=== PATIENT | male | born 1935 | race Caucasian/White ===

== ENCOUNTER 2019-10-01 11:12 | Outpatient (CLI) | payer MEDICARE, OTHER, SELFPAY ==
[2019-10-01 11:47] LABS: Basophils Percent Auto 0.5 % (0.2-1.2); Eosinophils Absolute Auto 0.1 K/mm3 (0-0.3); Eosinophils Percent Auto 2.7 % (0-4.4); Hematocrit 36.3 % (42.0-52.0); Hemoglobin 11.8 g/dL (14.0-18.0); Immature Granulocyte Absolute 0.01 K/mm3 (0.00-0.031); Immature Granulocyte Percent A 0.2 % (0-0.5); Lymphocytes Absolute Auto 0.76 K/mm3 (0.9-3.2); Lymphocytes Percent Auto 18.7 % (18.3-44.2); Mean Corpuscular HGB Conc 32.5 g/dl (32-36); Mean Corpuscular Hemoglobin 30.8 pg (26-34); Mean Corpuscular Volume 94.8 fl (80-100); Mean Platelet Volume 10.2 fl (7.4-10.4); Monocytes Absolute Auto 0.4 K/mm3 (0.1-0.6); Monocytes Percent Auto 8.6 % (2.6-8.5); Neutrophils Absolute Auto 2.8 K/mm3 (1.3-6.7); Neutrophils Percent Auto 69.3 % (45.5-73.1); Platelet Count Result 168 k/mm3 (150-375); Red Blood Count 3.83 M/mm3 (4.6-6.20); Red Cell Distribution Width 14.6 % (11.5-14.5); White Blood Count 4.1 K/mm3 (4.5-10.0)
[2019-10-01 11:59] LABS: Alanine Aminotransferase 14 U/L (4-50); Albumin Level 4.3 g/dL (3.5-5.1); Alkaline Phosphatase 42 U/L (38-126); Aspartate Amino Transferase 32 U/L (17-59); Bilirubin,Total 0.8 mg/dL (0.2-1.3); Blood Urea Nitrogen 28 mg/dL (9-20); Calcium 9.4 mg/dL (8.4-10.2); Carbon Dioxide 28 mmol/L (22-30); Chloride 108 mmol/L (98-107); Cholesterol 154 mg/dL (0-200); Estimated Glomerular Filt Rate 53; Glucose 111 mg/dL (75-110); HDL Direct 63 mg/dL; Potassium 4.3 mmol/L (3.4-5.0); Sodium 142 mmol/L (137-145); Triglycerides 84 mg/dL (<150)
[2019-10-01 12:06] LABS: Hemoglobin A1C 5.6 % (<5.7)
[2019-10-01 12:10] LABS: LDL Cholesterol Direct 68 mg/dL
[2019-10-01 12:27] LABS: Prostate Specific Antigen 4.7 ng/mL (< OR = 4.0)
[2019-10-01 12:38] LABS: Add Urine Microscopic? YES; Appearance Urine Clear (Clear); Bilirubin Urine Negative (Negative); Blood Urine 2+ (Negative); Color Urine Yellow (Yellow); Glucose Urine UA Negative (Negative); Iron 74 ug/dL (49-181); Ketones Urine Negative (Negative); Leukocyte Esterase Ur Trace LEU/UL (NEGATIVE); Mucus Urine Rare /lpf; Nitrate Urine Negative (Negative); Protein Urine Negative (Negative); RBC Urine 0-2 /hpf (0-2); Specific Grav Ur 1.024 (1.001-1.035); Squamous Epithelial Cell Urine Rare /hpf (Few); Urobilinogen Urine Negative mg/dL (<2.0)
[2019-10-01 12:47] LABS: Percent Iron Saturation 27 % (20-50)
== END 2019-10-01 11:13 | disposition home or self-care (01) ==
PROVIDERS: PCP Internal Medicine; Visit Provider Internal Medicine
DX: Z79.899 Other long term (current) drug therapy (principal); I10 Essential (primary) hypertension; C61 Malignant neoplasm of prostate; D50.9 Iron deficiency anemia, unspecified; E78.2 Mixed hyperlipidemia
CPT/HCPCS: 36415; 80053; 80061; 81001; 82728; 83036; 83540; 83550; 84153; 84439; 84443; 85025

== ENCOUNTER 2019-11-17 08:23 | Outpatient (CLI) | payer MEDICARE, OTHER, SELFPAY ==
--- NOTE | ~2019-11-17 | US_ITS ---
EXAMINATION: US art doppler w press PRINCESS BI DATE: 11/17/2019 09:25 INDICATION: Symptoms and signs involving circulatory system TECHNIQUE: Segmental pressures and plethysmographic and Doppler waveforms of the brachial and lower e xtremity arteries were obtained. COMPARISON: None. FINDINGS: Right and left brachial artery pressures of 130 mm Hg and 141 mm Hg, respectively, are concordant (no rmal difference <= 30 mmHg). The left high-thigh pressure index was 1.16 (normal > 1.2). The right hi gh thigh pressure index was unable to be occluded due to inability to occlude the vessel. Also unable to be occluded where the left flpxm-ybz-xdfl popliteal artery, the bilateral odjxd-yvz-avzn poplitea l arteries and bilateral dorsalis pedis arteries. This precludes assessment for segmental pressure gr adients. The right ankle-brachial index (WALLACE) is at least 0.91 based only upon the pressure at the right poste rior tibial artery (normal >= 0.9-1). The right great toe-brachial index (TBI) is 0.77 (normal >= 0.6 -0.8). Arterial waveforms are triphasic at the right common femoral and superficial femoral arteries and biphasic more distally with brisk systolic upstrokes throughout. The left WALLACE is 1.33. The left TBI is 0.50. Arterial waveforms are biphasic with brisk systolic upstr okes throughout. IMPRESSION: 1. 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 2. No significant arterial occlusive disease to the right lower limb with normal right WALLACE and TBI. Reviewed, dictated and finalized at location A. IMPRESSION: 1. 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 2. No significant arterial occlusive disease to the right lower limb with caty l right WALLACE and TBI.
== END 2019-11-17 08:24 | disposition home or self-care (01) ==
PROVIDERS: PCP Internal Medicine; Visit Provider Internal Medicine
DX: R09.89 Other specified symptoms and signs involving the circulatory and respiratory systems (principal)
CPT/HCPCS: 93923

== ENCOUNTER 2020-01-07 15:34 | Observation (INO) | payer MEDICARE, OTHER, SELFPAY ==
[2020-01-07] VITALS (10 sets, daily range): BP systolic 117–168; BP diastolic 65–79; PULSE 71–113; RESP 18–24; TEMP 36.1–36.6; O2SAT 22–99; BMI 26.2
--- NOTE | ~2020-01-07 | XR_ITS ---
EXAMINATION: XR chest 2V DATE: 01/07/2020 16:08 INDICATION: Worsening shortness of breath TECHNIQUE: PA and lateral views of the chest were obtained. COMPARISON: Chest radiograph dated 05/05/2006 FINDINGS: Hyperexpansion of lungs with flattening of the diaphragm and increased lucency in the upper lung zone s suggestive but not diagnostic of COPD. Blunting at the costophrenic angles and posterior sulci whic h could represent tiny pleural effusions or pleural parenchymal scarring. Suggestion of mild bronchie ctatic change at the left lower lung zone. No pulmonary edema or pneumothorax. Cardiomediastinal silh ouette is normal. Median sternotomy wires and mediastinal surgical clips are seen, likely from prior coronary artery bypass grafting. . There has also been prior coronary artery stenting. Tortuous and a therosclerotic thoracic aorta. Cholecystectomy clips in the right upper quadrant. Mild thoracic spond ylosis with minimal to mild anterior wedging of a few mid to lower thoracic vertebral bodies. IMPRESSION: 1. Hyperexpanded lungs suggestive but not diagnostic of COPD. 2. Tiny bilateral pleural effusions versus pleural parenchymal scarring at the margins of the lung ba ses. Reviewed, dictated and finalized at location B. IMPRESSION: 1. Hyperexpanded lungs suggestive but not diagnostic of COPD. 2. Tiny bilateral pleural effusions versus pleural parenchymal scarring at the margins of the lung bases.
--- NOTE | 2020-01-07 15:43 | ECG_ITS ---
Measurements Intervals [place] Rate: 68 P: MD: 0 QRS: 30 QRSD: 153 T: 19 QT: 456 QTc: 488 Interpretive Statements ATRIAL FIBRILLATION RIGHT BUNDLE BRANCH BLOCK ABNORMAL ECG Electronically Signed On 01-07-2020 16:39:00 CDT by Josh Batista D.O.
--- NOTE | 2020-01-07 15:45 | ED.SOB ---
HPI - SOB/Dyspnea General Chief Complaint: Recheck/Abnormal Lab/Rx Stated Complaint: abnormal ekg Time Seen by Provider: 01/07/20 15:43 History of Present Illness HPI Narrative: Sent in from PCP office for SOB. He reports that he has been more short of breath for the past few days and today just walking in from the car he becmae quite winded. He also reports early fatigue. He has known cardiomyopathy, but says that at baseline he is very active and does not get SOB. He has some ankle swelling, but no more than usual. No CP, cough, congestion, fever. Related Data Home Medications Medication Instructions Recorded Confirmed aspirin 81 mg tablet,delayed 81 mg PO DAILY 10/01/19 01/07/20 release furosemide 20 mg tablet 20 mg PO QAM 10/01/19 01/07/20 isosorbide mononitrate 60 mg 60 mg PO DAILY 10/01/19 01/07/20 tablet,extended release 24 hr multivitamin 1 tablet PO HS 10/01/19 01/07/20 pantoprazole 40 mg tablet,delayed 40 mg PO QAM 10/01/19 01/07/20 release warfarin 2 mg tablet 2 mg PO HS 10/01/19 01/07/20 oxybutynin chloride 5 mg PO HS 01/07/20 01/07/20 rosuvastatin 40 mg PO HS 01/07/20 01/07/20 Allergies Allergy/AdvReac Type Severity Reaction Status Date / Time No Known Allergies Allergy Verified 01/07/20 15:53 Review of Systems Review of Systems: All systems reviewed & are unremarkable except as noted in HPI and below Constitutional: Constitutional: Reports fatigue and Denies fever(s) ENT: Denies nasal congestion Cardiovascular: Cardiovascular: Denies chest pain Respiratory: Respiratory: Denies cough and Reports dyspnea [facility] Past Medical History Medical History Atrial fibrillation Benign essential hypertension Chronic anemia Chronic kidney disease Coronary artery disease Status post bypass in March 1992 and stent x2 in 2017. Current use of mcc anticoagulation On warfarin status post mechanical aortic valve replacement. Degenerative joint disease Essential hypertension Gastroesophageal reflux disease Hearing loss Hyperlipidemia Iron deficiency anemia Prostate cancer Valvular heart disease Status post mechanical aortic valve replacement. Surgical History Surgical History History of cholecystectomy (~1992) History of coronary artery bypass graft (~03/07/92) History of coronary artery stent placement (~2017) History of inguinal hernia repair (~1992) History of mechanical aortic valve replacement (~03/07/92) History of repair of left rotator cuff (~1997) History of tonsillectomy and adenoidectomy Family History Family History Mother ASHD (arteriosclerotic heart disease) Alzheimers disease Hypertension Father Bladder cancer Emphysema, unspecified Sibling Hypertension Social History Social History Social History: Surrogate decision maker: Maria Elena Tsai, spouse. Code status: Do not resuscitate. Smoking status: Former smoker Tobacco type: cigarettes Second hand tobacco smoke exposure: No Smoking end date: 05/06/90 Alcohol intake: current Alcohol use details: Social alcohol use, in moderation. Substance use: never Additional living arrangements comments: Lives with spouse in [place]. 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 Gender identity (if verbalized by the patient): Male Sexual Orientation (if Verbalized by the Patient): Straight or Heterosexual Spiritual care concerns: No Exam Const: General: no acute distress and alert Orientation/consciousness: patient oriented x3 HENMT: Head: normal to inspection Resp: Effort & Inspection: normal respiratory effort Auscultation: no rales, no rhonchi and wheezes Cardio: Jugular venous distension: no JVD Rhythm
[2020-01-07 16:04] LABS: Hematocrit 31.6 % (42.0-52.0); Hemoglobin 10.4 g/dL (14.0-18.0); Immature Granulocyte Absolute 0.03 K/mm3 (0.00-0.031); Immature Granulocyte Percent A 0.4 % (0-0.5); Lymphocytes Absolute Auto 0.28 K/mm3 (0.9-3.2); Lymphocytes Percent Auto 3.6 % (18.3-44.2); Mean Corpuscular HGB Conc 32.9 g/dl (32-36); Mean Corpuscular Hemoglobin 29.9 pg (26-34); Mean Corpuscular Volume 90.8 fl (80-100); Mean Platelet Volume 10.1 fl (7.4-10.4); Monocytes Absolute Auto 0.4 K/mm3 (0.1-0.6); Monocytes Percent Auto 4.5 % (2.6-8.5); Neutrophils Absolute Auto 7.2 K/mm3 (1.3-6.7); Neutrophils Percent Auto 91.5 % (45.5-73.1); Platelet Count Result 214 k/mm3 (150-375); Red Blood Count 3.48 M/mm3 (4.6-6.20); Red Cell Distribution Width 14.7 % (11.5-14.5); White Blood Count 7.8 K/mm3 (4.5-10.0)
[2020-01-07 16:16] LABS: Anion Gap 7 mmol/L (8-16); Blood Urea Nitrogen 30 mg/dL (9-20); Calcium 9.1 mg/dL (8.4-10.2); Carbon Dioxide 23 mmol/L (22-30); Chloride 111 mmol/L (98-107); Estimated CRCL calculation 36 ml/min; Estimated Glomerular Filt Rate > 60; Glucose 173 mg/dL (75-110); Potassium 3.9 mmol/L (3.4-5.0); Sodium 141 mmol/L (137-145)
[2020-01-07 16:18] LABS: INR 4.1; Prothrombin Time 39.4 Seconds (11.1-14.7)
[2020-01-07 16:19] LABS: Partial Thromboplastin Time 60.1 SECONDS (22.3-36.8)
--- NOTE | 2020-01-07 16:20 | PC.NURSE ---
This RN placed patient back on monitor after arriving back to ER room from X-ray. Patient stating pulse ox and blood pressure cuff cause him anxiety and asking this RN to remove. Need for monitoring oxygen saturation and blood pressure explained to patient. Patient refusing but will allow intermittent vital signs checks.
[2020-01-07] MEDS: IPRATROPIUM BR 0.02% INH SOLN 0.5 MG/2.5 ML VIAL INHALATION (16:26)
[2020-01-07] MEDS: ALBUTEROL SULFATE NEB 2.5 MG/0.5 ML INH 5 MG INHALATION (16:26)
[2020-01-07 16:35] LABS: NT Pro B Type Natriuretic Pept 9390 PG/ML (5-100); Troponin I 0.679 ng/mL (0.000-0.034)
--- NOTE | 2020-01-07 17:20 | PC.NURSE ---
Dinner tray ordered for pt at this time
--- NOTE | 2020-01-07 17:43 | PC.NURSE ---
Pt calling out, RN to room. Pt states 1st of all where is my food, 2nd of all where am i even suppose to sat the tray when i get it in this room, what is taking so long I stated that I ordered his tray and it will be here soon and showed him the side tray. Pt states where is the doctor, i asked a question 20 minutes ago and he isn't in here I state that the Dr has other patients that he is with and will be in with him when he gets a chance. Pt states well im the most important so he needs to get in here
[2020-01-07 19:35] LABS: Troponin I 0.599 ng/mL (0.000-0.034)
--- NOTE | 2020-01-07 20:42 | ADMGEN ---
This patient, Akira Samson, was admitted to IMU Room 213-01 from ER at 19:05 on 01/07/20. Patient/family oriented to hospital policies and general routines including ID bracelet, bed and alarms, visiting hours, pain management, procedures, bathroom and other care routines, personal items, smoking policy, room service/diet, and visiting hours. Valuables list has been completed. Information on how to activate the Rapid Response Team has been discussed. Patient/Family are encouraged to report perceived risks to care and to ask questions if they do not understand what they are told or what they should do.
--- NOTE | 2020-01-07 20:45 | PM.IMHP ---
H&P: HPI History of Present Illness Date/Time: 01/07/20 20:45 Chief complaint: Shortness of breath. Narrative: Akira Samson is an 84-year-old male with coronary artery disease status post stent, valvular heart disease status post mechanical aortic valve replacement in 1991, hypertension, hyperlipidemia, to the emergency department earlier today from Dr. Cisneros office for evaluation of shortness of breath. He is not too keen on being hospitalized, and tells me that he is currently feeling in his usual state of health and is not certain why he is even in the hospital. He is a bit irritable at the time my evaluation, and is difficult to get a full history from him ?as I am sick of answering the same questions.? From what I can gather, this morning he was doing some projects about the house (he and his have been remodeling their home and preparations for selling it) and he seemed to be more short of breath to his who encouraged him to make an appoint with Dr. Cisneros today. An EKG done at his office was apparently abnormal, prompting him to send the patient to the emergency department. With further questioning, the patient is adamant that he has never had any chest pain but that he has been getting short of breath even when walking and doing daily activities about the home. However ?I am like the energizeer nat and it sounds like he is very active, as he is responsible for cooking and cleaning the home, and again he is actively remodeling his own home. ?I have no problems with shortness of breath when lifting, it is only when up walking. He cannot give me a time frame as to whether not that has been ongoing or if this is a new finding. Again, at the time my evaluation he has no complaints. He specifically denies chest pain, pleuritic pain, palpitations, orthopnea, PND, cough, wheezing, pleuritic pain, edema, nausea, vomiting, and sweats. Review of Systems Review of Systems: Narrative: A review of systems was attempted but is limited as the patient is not answering all of my questions as he has been asked multiple questions since coming to the hospital and he seems a bit perturbed by having to answer more. Positives and negatives are documented as per HPI. [facility] Past Medical History Medical History (Updated 01/07/20 @ 23:22 by Shelby Wilson PA-C) Atrial fibrillation Benign essential hypertension Chronic anemia Chronic kidney disease Coronary artery disease Status post bypass in March 1992 and stent x2 in 2017. Current use of chcf anticoagulation On warfarin status post mechanical aortic valve replacement. Degenerative joint disease Essential hypertension Gastroesophageal reflux disease Hearing loss Hyperlipidemia Iron deficiency anemia Prostate cancer Valvular heart disease Status post mechanical aortic valve replacement. Surgical History Surgical History (Updated 01/07/20 @ 23:18 by Shelby Wilson PA-C) History of cholecystectomy (~1992) History of coronary artery bypass graft (~03/07/92) History of coronary artery stent placement (~2017) History of inguinal hernia repair (~1992) History of mechanical aortic valve replacement (~03/07/92) History of repair of left rotator cuff (~1997) History of tonsillectomy and adenoidectomy Family History Family History Mother ASHD (arteriosclerotic heart disease) Alzheimers disease Hypertension Father Bladder cancer Emphysema, unspecified Sibling Hypertension Social History Social History (Updated 01/07/20 @ 23:19 by Shelby Wilson PA-C) Social History: Surrogate decision maker: Maria Elena Tsai, spouse. Code status: Do not resuscitate. Smoking status: Former smoker Tobacco type: cigarettes Second hand tobacco smoke exposure: No Smoking end date: 05/06/90 Alcohol intake: current Alcohol use details: Social alcohol use, in moderation. Substance use: never Ad
[2020-01-07 22:31] LABS: Troponin I 0.663 ng/mL (0.000-0.034)
[2020-01-08] VITALS: PULSE 74
[2020-01-08] MEDS: OXYBUTYNIN CHLORIDE 5 MG TABLET PO (00:29)
[2020-01-08] MEDS: ROSUVASTATIN 10 MG TABLET 40 MG PO (00:30)
[2020-01-08] MEDS: MULTIVITAMINS THERAPEUTIC TAB (*BKC) 1 TABLET PO (00:30)
--- NOTE | 2020-01-08 01:13 | PC.NURSE ---
0100 pt agitated and verbally aggressive towards nursing staff. Pt demanded Coumadin, which was held per H. RAFA Wilson d/t pt's INR 4.1 Pt extremely upset stating he will shahid the hospital if he doesn't get his medication. Nursing staff attempted to education pt as to why the order to hold the Coumadin was implemented, but pt continued to yell in an agitated state. Nursing staff informed pt that he would not be receiving the Coumadin this evening and the physicians would be rounding in a few hours and he could discuss the issue with them personally. Pt left with call light in hand, and nursing staff will cont to monitor and assess.
[2020-01-08 02:00] VITALS: PULSE 61
[2020-01-08 03:39] VITALS: BP 153/65; PULSE 84; RESP 22; TEMP 36.5; O2SAT 99
[2020-01-08 04:00] VITALS: PULSE 71
[2020-01-08 05:04] LABS: Hematocrit 30.8 % (42.0-52.0); Hemoglobin 10.2 g/dL (14.0-18.0); Immature Granulocyte Absolute 0.04 K/mm3 (0.00-0.031); Immature Granulocyte Percent A 0.6 % (0-0.5); Lymphocytes Absolute Auto 0.19 K/mm3 (0.9-3.2); Lymphocytes Percent Auto 3.1 % (18.3-44.2); Mean Corpuscular HGB Conc 33.1 g/dl (32-36); Mean Corpuscular Hemoglobin 30.4 pg (26-34); Mean Corpuscular Volume 91.7 fl (80-100); Mean Platelet Volume 10.5 fl (7.4-10.4); Monocytes Absolute Auto 0.3 K/mm3 (0.1-0.6); Monocytes Percent Auto 4.2 % (2.6-8.5); Neutrophils Absolute Auto 5.7 K/mm3 (1.3-6.7); Neutrophils Percent Auto 92.1 % (45.5-73.1); Platelet Count Result 197 k/mm3 (150-375); Red Blood Count 3.36 M/mm3 (4.6-6.20); Red Cell Distribution Width 14.7 % (11.5-14.5); White Blood Count 6.2 K/mm3 (4.5-10.0)
[2020-01-08 05:15] LABS: INR 4.4; Prothrombin Time 41.6 Seconds (11.1-14.7)
[2020-01-08 05:16] LABS: Alanine Aminotransferase 20 U/L (4-50); Albumin Level 4.1 g/dL (3.5-5.1); Alkaline Phosphatase 52 U/L (38-126); Anion Gap 6 mmol/L (8-16); Aspartate Amino Transferase 39 U/L (17-59); Bilirubin,Total 0.4 mg/dL (0.2-1.3); Blood Urea Nitrogen 29 mg/dL (9-20); Carbon Dioxide 24 mmol/L (22-30); Chloride 109 mmol/L (98-107); Estimated CRCL calculation 34 ml/min; Estimated Glomerular Filt Rate 58; Glucose 138 mg/dL (75-110); Magnesium 2.3 mg/dL (1.6-2.3); Potassium 4.3 mmol/L (3.4-5.0); Sodium 139 mmol/L (137-145)
[2020-01-08 05:48] VITALS: PULSE 77
--- NOTE | 2020-01-08 07:18 | PC.NURSE ---
This morning, pt's physician Dr. Cisneros, came to the bedside to speak to pt regarding his admission and the importance of why he is at the hospital. Blayne discussed the pt's elevated troponin levels and why it is crucial to be seen by cardiology d/t his extensive cardiac history. Pt also brought up INR level and how angry he was that RN held his coumadin d/t verbal order from PA. Dr. Cisneros explained the reasoning behind holding the coumadin, pt still did not agree with logic. Pt was agitated and did not want to stay at [facility], stating he hates this hospital . Dr. Cisneros told the patient that if he doesn't stay at [facility] to be seen by the printing plate clerk, then he needs to go home and sit on his bottom, no activity because he is at risk of a cardiac event. He told the pt he should not travel (I assume based on conversation the pt and had plans to travel in the next few days). Dr. Cisneros asked the pt if he would at least stay and be seen/discharged by the hospitalist. Pt agreed to stay and be seen by hospitalist this morning. Oncoming RN, Jacqui, called combat information center officer hospitalist Dr. Fields to discuss situation and inform him of pt wanting to leave. RAFA Odell (Dr. Mejia), came to bedside to discuss situation with patient.
--- NOTE | 2020-01-08 07:56 | PC.NURSE ---
RAFA Smith went into the patient's room to speak with him regarding his need to stay at the hospital for his medical issues for which he was admitted. When Mariangel left the room she informed me that the patient still wishes to sign out AMA. I went into the patient's room and spoke with him one more time about staying to which he responded I have been through this song and dance for an hour. I want to leave. I had the patient sign the AMA form and removed his health physics technician and IV. Patient called his ride and was getting dressed when I stepped out of the room. Patient left the floor at 07:42.
--- NOTE | 2020-01-08 07:58 | PM.DS ---
DS: Admitting Diagnosis Admitting Diagnosis Admitting Diagnosis: Shortness of breath. DS: Discharge Diagnosis Discharge Diagnosis (1) Shortness of breath: Code(s): R06.02 - Shortness of breath Status: Acute Assessment and Plan: (2) Elevated troponin: Code(s): R79.89 - Other specified abnormal findings of blood chemistry Status: Acute Assessment and Plan: (3) Atrial fibrillation: Code(s): I48.91 - Unspecified atrial fibrillation Status: Acute Assessment and Plan: (4) Current use of terminologist anticoagulation: Code(s): Z79.01 - extermination inspector (current) use of anticoagulants Status: Acute Assessment and Plan: (5) Coronary artery disease: Code(s): I25.10 - Atherosclerotic heart disease of [place] coronary artery without angina pectoris Status: Acute Assessment and Plan: (6) Chronic anemia: Code(s): D64.9 - Anemia, unspecified Status: Acute Assessment and Plan: (7) Essential hypertension: Code(s): I10 - Essential (primary) hypertension Status: Acute Assessment and Plan: DS: Summary Hospital Course Reason for hospitalization: Patient is an 84-year-old man with coronary artery disease status post stent, valvular heart disease status post mechanical aortic valve replacement in 1991, hypertension, hyperlipidemia, who was sent into the emergency room for further evaluation by his primary care doctor Dr. Cisneros after your reported increased dyspnea on exertion for the last few weeks. There was an EKG completed his primary care's office which was apparently abnormal and prompted him to be sent to the ER for further evaluation workup. Initial vitals showed Temperature of 98.9?, blood pressure 124/66, heart rate 73, respiratory rate 16, oxygen saturation 96% on room air. Initial labs showed normocytic anemia with a hemoglobin of 10.4, hematocrit 31.6, elevated neutrophil count at 91%, abnormal coag panel with an INR 4.1 which is increased since he is on Coumadin, BMP appears to be stable with a creatinine 1.1, BUN 30. Troponin was elevated at 0.679 on arrival. BMP was 9390. CXR showed Hyperexpanded lungs suggestive but not diagnostic of COPD. Tiny bilateral pleural effusions versus pleural parenchymal scarring at the margins of the lung bases. EKG showed atrial fibrillation With a heart rate of 68 beats per minute, right bundle branch block. Patient was admitted into the hospital for further workup and evaluation with a cardiology consult. He was admitted by Shelby Wilson and her note stated that the patient did not want to be admitted in the 1st place in that he was going to be leaving promptly at 7:00 a.m.. I received a call at 7:05 a.m. stating that the patient wanted to leave. His primary care doctor had been in to evaluate him and tried to convince him of staying for evaluation by the hospitalists and Cardiology. I went to evaluate the patient and informed him of the risks of leaving which could include if we cannot rule out him having a heart attack causing his elevated troponins and dyspnea on exertion given his history of coronary artery disease. The patient states he does not care and that he would like to leave right now. He states ?God will take care of him?. The patient is alert and oriented and able to make his own sound decisions at this point in time. He understands the risks of leaving the hospital against medical advise and has been informed that he should stay for further workup and evaluation by Cardiology given his cardiac history. He
== END 2020-01-08 07:42 | disposition left against medical advice (07) ==
LOC: ANHED 17:44 → ANHIMU 18:21
PROVIDERS: Physician Assistant; Admitting Provider Internal Medicine; Emergency Provider Emergency Medicine; PCP Internal Medicine; Visit Provider Physician Assistant
DX: R06.02 Shortness of breath (principal); R79.89 Other specified abnormal findings of blood chemistry; I48.91 Unspecified atrial fibrillation; I42.9 Cardiomyopathy, unspecified; I25.10 Atherosclerotic heart disease of native coronary artery without angina pectoris; I10 Essential (primary) hypertension; K21.9 Gastro-esophageal reflux disease without esophagitis; E78.5 Hyperlipidemia, unspecified; D64.9 Anemia, unspecified; Z85.46 Personal history of malignant neoplasm of prostate; Z95.2 Presence of prosthetic heart valve; Z79.01 Long term (current) use of anticoagulants; Z79.84 Long term (current) use of oral hypoglycemic drugs; Z95.1 Presence of aortocoronary bypass graft; Z95.5 Presence of coronary angioplasty implant and graft; Z87.891 Personal history of nicotine dependence
CPT/HCPCS: 36415; 71046; 80048; 80053; 83735; 83880; 84484; 85025; 85610; 85730; 93005; 94640; 99285; A9270; G0378

== ENCOUNTER 2020-02-02 14:53 | Outpatient (CLI) | payer MEDICARE, OTHER, SELFPAY ==
[2020-02-02 15:21] LABS: Basophils Percent Auto 0.3 % (0.2-1.2); Eosinophils Absolute Auto 0.1 K/mm3 (0-0.3); Eosinophils Percent Auto 1.8 % (0-4.4); Hematocrit 31.7 % (42.0-52.0); Hemoglobin 10.3 g/dL (14.0-18.0); Immature Granulocyte Absolute 0.01 K/mm3 (0.00-0.031); Immature Granulocyte Percent A 0.3 % (0-0.5); Lymphocytes Absolute Auto 0.78 K/mm3 (0.9-3.2); Lymphocytes Percent Auto 23.8 % (18.3-44.2); Mean Corpuscular HGB Conc 32.5 g/dl (32-36); Mean Corpuscular Hemoglobin 30.3 pg (26-34); Mean Corpuscular Volume 93.2 fl (80-100); Mean Platelet Volume 9.6 fl (7.4-10.4); Monocytes Absolute Auto 0.3 K/mm3 (0.1-0.6); Monocytes Percent Auto 7.9 % (2.6-8.5); Neutrophils Absolute Auto 2.2 K/mm3 (1.3-6.7); Neutrophils Percent Auto 65.9 % (45.5-73.1); Platelet Count Result 233 k/mm3 (150-375); Red Cell Distribution Width 15.7 % (11.5-14.5); White Blood Count 3.3 K/mm3 (4.5-10.0)
[2020-02-02 15:33] LABS: Anion Gap 9 mmol/L (8-16); Blood Urea Nitrogen 20 mg/dL (9-20); Calcium 9.2 mg/dL (8.4-10.2); Carbon Dioxide 25 mmol/L (22-30); Chloride 106 mmol/L (98-107); Cholesterol 150 mg/dL (0-200); Estimated Glomerular Filt Rate > 60; Glucose 99 mg/dL (75-110); HDL Direct 60 mg/dL; Potassium 4.4 mmol/L (3.4-5.0); Sodium 140 mmol/L (137-145); Triglycerides 87 mg/dL (<150)
[2020-02-02 15:44] LABS: LDL Cholesterol Direct 67 mg/dL
== END 2020-02-02 14:54 | disposition home or self-care (01) ==
PROVIDERS: PCP Internal Medicine; Visit Provider Internal Medicine
DX: E78.2 Mixed hyperlipidemia (principal); I10 Essential (primary) hypertension
CPT/HCPCS: 36415; 80048; 80061; 82542; 85025

== ENCOUNTER 2020-09-01 07:03 | Outpatient (CLI) | payer MEDICARE, SELFPAY ==
[2020-09-01 07:23] LABS: Basophils Percent Auto 0.8 % (0.2-1.2); Eosinophils Absolute Auto 0.1 K/mm3 (0-0.3); Eosinophils Percent Auto 3.8 % (0-4.4); Hematocrit 34.2 % (42.0-52.0); Hemoglobin 10.9 g/dL (14.0-18.0); Immature Granulocyte Absolute 0.01 K/mm3 (0.00-0.031); Immature Granulocyte Percent A 0.4 % (0-0.5); Lymphocytes Absolute Auto 0.69 K/mm3 (0.9-3.2); Lymphocytes Percent Auto 28.9 % (18.3-44.2); Mean Corpuscular HGB Conc 31.9 g/dl (32-36); Mean Corpuscular Hemoglobin 29.5 pg (26-34); Mean Corpuscular Volume 92.7 fl (80-100); Monocytes Absolute Auto 0.2 K/mm3 (0.1-0.6); Monocytes Percent Auto 9.6 % (2.6-8.5); Neutrophils Absolute Auto 1.4 K/mm3 (1.3-6.7); Neutrophils Percent Auto 56.5 % (45.5-73.1); Platelet Count Result 136 k/mm3 (150-375); Red Blood Count 3.69 M/mm3 (4.6-6.20); White Blood Count 2.4 K/mm3 (4.5-10.0)
[2020-09-01 08:04] LABS: Alanine Aminotransferase 20 U/L (4-50); Albumin Level 3.9 g/dL (3.5-5.1); Alkaline Phosphatase 53 U/L (38-126); Anion Gap 4 mmol/L (8-16); Aspartate Amino Transferase 41 U/L (17-59); Bilirubin,Total 0.6 mg/dL (0.2-1.3); Blood Urea Nitrogen 22 mg/dL (9-20); Calcium 8.8 mg/dL (8.4-10.2); Carbon Dioxide 29 mmol/L (22-30); Chloride 110 mmol/L (98-107); Cholesterol 136 mg/dL (0-200); Estimated Glomerular Filt Rate > 60; Glucose 106 mg/dL (75-110); HDL Direct 61 mg/dL; LDL Cholesterol Direct 57 mg/dL; Sodium 143 mmol/L (137-145); Triglycerides 65 mg/dL (<150)
[2020-09-01 08:25] LABS: Iron 36 ug/dL (49-181)
[2020-09-01 08:30] LABS: Potassium 4.5 mmol/L (3.4-5.0)
[2020-09-01 08:36] LABS: Percent Iron Saturation 13 % (20-50)
[2020-09-01 08:40] LABS: Hemoglobin A1C 5.4 % (<5.7)
[2020-09-01 08:43] LABS: Free T4 Free Thyroxine 1.15 ng/mL (0.78-2.19)
[2020-09-04 20:09] LABS: Homocysteine 10.6 umol/L (<11.4)
[2020-09-06 13:10] LABS: Vitamin D 1,25 (OH)2 Total 25 pg/mL (18-72); Vitamin D2 1,25 (OH)2 <8 pg/mL; Vitamin D3 1,25 (OH)2 25 pg/mL
== END 2020-09-01 07:04 | disposition home or self-care (01) ==
LOC: ANHLAB 07:07
PROVIDERS: PCP Internal Medicine; Visit Provider Internal Medicine
DX: E55.9 Vitamin D deficiency, unspecified (principal); I10 Essential (primary) hypertension; D50.9 Iron deficiency anemia, unspecified; Z79.899 Other long term (current) drug therapy; E78.2 Mixed hyperlipidemia; R79.89 Other specified abnormal findings of blood chemistry; Z12.5 Encounter for screening for malignant neoplasm of prostate; Z85.46 Personal history of malignant neoplasm of prostate
CPT/HCPCS: 36415; 80053; 80061; 82652; 82728; 83036; 83090; 83540; 83550; 84153; 84439; 84443; 85025; G0103

== ENCOUNTER → 2020-09-06 01:56 | Outpatient (CLI) | payer MEDICARE, SELFPAY ==
[2020-09-06 19:24] LABS: SARS-CoV-2 RNA PCR Negative
== END ==
PROVIDERS: PCP Internal Medicine; Visit Provider Internal Medicine Critical Care Medicine
DX: Z01.812 Encounter for preprocedural laboratory examination (principal); Z20.822 Contact with and (suspected) exposure to COVID-19
CPT/HCPCS: C9803; U0003; U0005

== ENCOUNTER 2020-09-08 08:23 | Outpatient (CLI) | payer MEDICARE, SELFPAY ==
--- NOTE | 2020-09-08 11:30 | NEURO_ITS ---
Impression: # Complains of numbness and pain in hands. # Bilateral moderate Carpal Tunnel Syndrome, right more than left. # No ulnar neuropathy. # Normal needle/EMG exam. Nerve Conduction Studies Anti Sensory Summary Table Stim Site NR Peak (ms) P-T Amp (?V) Site1 Site2 Delta-P (ms) Dist (cm) [place] (m/s) Left Median Anti Sensory (2-3nd Digit) Wrist 3.8 34.7 Wrist 2-3nd Digit 3.8 14.0 37 Wrist 3.8 13.3 Wrist 2-3nd Digit 3.8 14.0 37 Right Median Anti Sensory (2-3nd Digit) Wrist 5.2 14.9 Wrist 2-3nd Digit 5.2 14.0 27 Wrist 5.2 19.1 Wrist 2-3nd Digit 5.2 14.0 27 Left Radial Anti Sensory (Base 1st Digit) Wrist 2.4 24.4 Wrist Base 1st Digit 2.4 0.0 Right Radial Anti Sensory (Base 1st Digit) Wrist 3.0 15.3 Wrist Base 1st Digit 3.0 0.0 Left Ulnar Anti Sensory (5th Digit) Wrist 2.9 27.8 Wrist 5th Digit 2.9 14.0 48 Right Ulnar Anti Sensory (5th Digit) Wrist 2.9 10.5 Wrist 5th Digit 2.9 14.0 48 Motor Summary Table Stim Site NR Onset (ms) O-P Amp (mV) Site1 Site2 Delta-0 (ms) Dist (cm) [place]erson (m/s) Left Median Motor (Abd Poll Brev) Wrist 5.2 2.2 Elbow Wrist 4.4 26.0 59 Elbow 9.6 2.6 Right Median Motor (Abd Poll Brev) Wrist 5.6 1.0 Elbow Wrist 4.5 24.0 53 Elbow 10.1 0.9 Left Ulnar Motor (Abd Dig Minimi) Wrist 2.7 5.2 A Elbow Wrist 4.8 27.0 56 A Elbow 7.5 4.5 Right Ulnar Motor (Abd Dig Minimi) Wrist 2.6 4.9 A Elbow Wrist 4.6 26.0 57 A Elbow 7.2 4.0 F Wave Studies NR F-Lat (ms) L-R F-Lat (ms) Left Median (Mrkrs) (Abd Poll Brev) 28.64 0.41 Right Median (Mrkrs) (Abd Poll Brev) 28.23 0.41 Left Ulnar (Mrkrs) (Abd Dig Min) 26.60 1.06 Right Ulnar (Mrkrs) (Abd Dig Min) 27.66 1.06 EMG Side Muscle Nerve Root Ins Act Fibs Amp Dur Recrt Comment Right 1stDorInt Ulnar C8-T1 Nml Nml Nml Nml Nml Right Ext Indicis Radial (Post Int) C7-8 Nml Nml Nml Nml Nml Right Ext Digitorum Radial (Post Int) C7-8 Nml Nml Nml Nml Nml Right BrachioRad Radial C5-6 Nml Nml Nml Nml Nml Right PronatorTeres Median C6-7 Nml Nml Nml Nml Nml Right Abd Poll Brev Median C8-T1 Nml Nml Nml Nml Nml Left 1stDorInt Ulnar C8-T1 Nml Nml Nml Nml Nml Left Ext Indicis Radial (Post Int) C7-8 Nml Nml Nml Nml Nml Left Ext Digitorum Radial (Post Int) C7-8 Nml Nml Nml Nml Nml Left BrachioRad Radial C5-6 Nml Nml Nml Nml Nml Left PronatorTeres Median C6-7 Nml Nml Nml Nml Nml Left Abd Poll Brev Median C8-T1 Nml Nml Nml Nml Nml Right ABD Dig Min Ulnar C8-T1 Nml Nml Nml Nml Nml Left ABD Dig Min Ulnar C8-T1 Nml Nml Nml Nml Nml MTDD
== END 2020-09-08 08:24 | disposition home or self-care (01) ==
LOC: ANHNEURO 08:25
PROVIDERS: PCP Internal Medicine; Visit Provider Internal Medicine
DX: R20.2 Paresthesia of skin (principal); G56.03 Carpal tunnel syndrome, bilateral upper limbs
CPT/HCPCS: 95886; 95911

== ENCOUNTER 2020-09-08 10:11 | Outpatient (CLI) | payer MEDICARE, SELFPAY ==
--- NOTE | 2020-09-23 12:58 | WPDSLEEPSTUD ---
Sleep Study Date of Study: 09/08/20 Ordering Provider: Sanjiv Cisneros MD Interpreting Physician: Carmen Aguilar MD Sleep Study Type: Split Polysomnogram Height: 1.57 m Weight: 62.596 kg Body Mass Index: 25.2 Neck Circumference (inches): 15 [place]: 4 Reason for Sleep Study Sleeps on 2 pillows, and makes a lot of noise breathing in his sleep Sleep History Akira Samson is an 85 year old man with loud snoring which causes others to complain. He constantly wakes at night feeling coughing, occasionally wakes feeling short of breath. He occasionally has trouble sleeping with a cold. He rarely wakes up gasping for breath at night, and occasionally has difficulties breathing at night per others,and occasionally sweats excessively at night. He does not notice his heart beating irregularly at night. He rarely falls asleep in the day, never involuntarily and never while driving. He does not have loss of muscle tone with string emotion. He does not feel paralyzed on waking or falling asleep. He does not feel paralyzed on waking or falling asleep. He frequently vivid dream like scenes on waking or falling asleep. He is not afraid to go to sleep. He does not have nightmares. He frequently remembers his dreams. He constantly has racing thoughts. He does not feel sad or depressed. He occasionally has anxiety. Occasionally has muscular tension. He does not notice parts of his body jerking. He does not kick at night. He does not have crawling or aching feelings in his legs. He occasionally has leg pain at night. He does not have morning jaw pain. He does not grind his teeth during sleep. He occasionally has bothered by pain during the day. He rarely is awakened by pain at night. He occasionally wakes up feeling stiff in the morning, rarely wakes up with sore or achy muscles, rarely wakes up with pain in the neck and pain. He is retired. He feels tense often. He has gained weight during the last year. Normal bedtime is 9:00 p.m. and the amount of time it takes to fall asleep varies from night to night. He typically wakes up 3-5 times during the night to use the bathroom. While awake he will watch television. Sometimes he stays awake as long as 2 hours. He wakes in the morning between 5 and 6:00 a.m.. He estimates getting 5-1/2 hours of sleep on average. His weekend schedule is the same. He takes naps sometimes. Sometimes a short nap of 10 or 15 minutes can be refreshing. Habits: Former tobacco smoker. Caffeine 2 cups a day. He does drink alcohol. No recreational drugs. [facility] Past Medical History Medical History (Updated 09/23/20 @ 13:20 by Carmen Aguilar MD) Atrial fibrillation Benign essential hypertension BMI 25.0-25.9,adult Carpal tunnel syndrome, bilateral Chronic anemia Chronic kidney disease Coronary artery disease Status post bypass in March 1992 and stent x2 in 2017. Current use of manager terminal anticoagulation On warfarin status post mechanical aortic valve replacement. Degenerative joint disease Encounter for routine adult health examination without abnormal findings Essential hypertension Gastroesophageal reflux disease Hand paresthesia Hearing loss History of prostate cancer History of tobacco abuse Hyperlipidemia Hypersomnolence Iron deficiency anemia Nocturnal leg cramps Pancytopenia Prostate cancer Valvular heart disease Status post mechanical aortic valve replacement. Surgical History Surgical History (Updated 08/31/20 @ 09:46 by Sunshine Beckham CMA) History of cholecystectomy (~1992) History of coronary artery bypass graft (~03/07/92) History of coronary artery stent placement (~2017) History of inguinal hernia repair (~1992) History of mechanical aortic valve replacement (~03/07/92) History of repair of left rotator cuff (~1997) History of tonsillectomy and adenoidectomy S/P right rotator cuff repair Family History Family History Moth
[2020-09-23 17:08] VITALS: BMI 25.2
== END 2020-09-08 10:12 | disposition home or self-care (01) ==
LOC: ANHCSM 10:11
PROVIDERS: PCP Internal Medicine; Visit Provider Internal Medicine
DX: G47.10 Hypersomnia, unspecified (principal); G47.33 Obstructive sleep apnea (adult) (pediatric); G47.31 Primary central sleep apnea
CPT/HCPCS: 36415; 80053; 82607; 82728; 82746; 83540; 83550; 83615; 85025; 85046; 95811; 95886; 95911

== ENCOUNTER 2020-09-08 11:53 | Outpatient (CLI) | payer MEDICARE, SELFPAY ==
[2020-09-08 12:17] LABS: Basophils Percent Auto 0.9 % (0.2-1.2); Eosinophils Absolute Auto 0.1 K/mm3 (0-0.3); Eosinophils Percent Auto 2.3 % (0-4.4); Hematocrit 36.2 % (42.0-52.0); Hemoglobin 11.4 g/dL (14.0-18.0); Immature Granulocyte Absolute 0.01 K/mm3 (0.00-0.031); Immature Granulocyte Percent A 0.3 % (0-0.5); Immature Reticulocyte Fraction 10.3 % (3.0-15.9); Lymphocytes Absolute Auto 0.87 K/mm3 (0.9-3.2); Lymphocytes Percent Auto 25.5 % (18.3-44.2); Mean Corpuscular HGB Conc 31.5 g/dl (32-36); Mean Corpuscular Volume 92.1 fl (80-100); Mean Platelet Volume 10.2 fl (7.4-10.4); Monocytes Absolute Auto 0.3 K/mm3 (0.1-0.6); Monocytes Percent Auto 8.8 % (2.6-8.5); Neutrophils Absolute Auto 2.1 K/mm3 (1.3-6.7); Neutrophils Percent Auto 62.2 % (45.5-73.1); Platelet Count Result 169 k/mm3 (150-375); Red Blood Count 3.93 M/mm3 (4.6-6.20); Red Cell Distribution Width 16.5 % (11.5-14.5); Reticulocyte Percent 1.11 % (0.7-4.3); Reticulocytes Absolute 0.04 B/L (32.2-175.7); White Blood Count 3.4 K/mm3 (4.5-10.0)
[2020-09-08 13:16] LABS: Iron 47 ug/dL (49-181)
[2020-09-08 13:25] LABS: Percent Iron Saturation 15 % (20-50)
[2020-09-08 13:56] LABS: Alanine Aminotransferase 31 U/L (4-50); Albumin Level 4.4 g/dL (3.5-5.1); Alkaline Phosphatase 55 U/L (38-126); Anion Gap 7 mmol/L (8-16); Aspartate Amino Transferase 50 U/L (17-59); Bilirubin,Total 0.7 mg/dL (0.2-1.3); Blood Urea Nitrogen 23 mg/dL (9-20); Calcium 9.6 mg/dL (8.4-10.2); Carbon Dioxide 27 mmol/L (22-30); Chloride 107 mmol/L (98-107); Estimated Glomerular Filt Rate > 60; Glucose 106 mg/dL (75-110); Lactate Dehydrogenase 687 U/L (313-618); Potassium 4.5 mmol/L (3.4-5.0); Sodium 141 mmol/L (137-145)
[2020-09-08 15:09] LABS: Folic Acid > 20.0 ng/mL (2.76->20)
== END 2020-09-08 11:54 | disposition home or self-care (01) ==
PROVIDERS: PCP Internal Medicine; Visit Provider Internal Medicine Hematology & Oncology
DX: D61.818 Other pancytopenia (principal); D50.9 Iron deficiency anemia, unspecified
CPT/HCPCS: 36415; 80053; 82607; 82728; 82746; 83540; 83550; 83615; 85025; 85046

== ENCOUNTER 2020-09-16 08:37 | Outpatient (CLI) | payer MEDICARE, SELFPAY ==
--- NOTE | ~2020-09-16 | US_ITS ---
US abdomen complete DATE: 09/16/2020 09:04 INDICATION: Pancytopenia TECHNIQUE: Real-time imaging and Doppler analysis of the abdomen COMPARISON: None FINDINGS: History of cholecystectomy. Normal hepatopedal portal venous flow direction. No hepatic or pancreatic space-occupying mass lesion is evident. The common bile duct measures up to 5.3 mm, the pa ncreatic duct up to 2.6 mm. The kidneys each measure a little over 9 cm length. No renal mass lesion or hydronephrosis is evident . The spleen measures approximately 11.6 cm length, within upper normal range. Normal caliber of the abdominal aorta, with atherosclerotic calcification. The inferior vena cava is patent. IMPRESSION: Status post cholecystectomy Reviewed, dictated and finalized at [facility]. Reviewed, dictated and finalized at location [facility]. IMPRESSION: Status post cholecystectomy
== END 2020-09-16 08:38 | disposition home or self-care (01) ==
PROVIDERS: PCP Internal Medicine; Visit Provider Internal Medicine Hematology & Oncology
DX: D61.818 Other pancytopenia (principal); Z90.49 Acquired absence of other specified parts of digestive tract
CPT/HCPCS: 76700

== ENCOUNTER 2020-11-10 06:49 | Outpatient (CLI) | payer MEDICARE, SELFPAY ==
[2020-11-10 09:39] LABS: Vitamin D 25 Hydroxy 82.6 ng/mL
[2020-11-10 10:17] LABS: Hemoglobin A1C 5.7 % (<5.7)
== END 2020-11-10 06:50 | disposition home or self-care (01) ==
LOC: ANHLAB 06:54
PROVIDERS: PCP Internal Medicine; Visit Provider Internal Medicine
DX: E55.9 Vitamin D deficiency, unspecified (principal); E78.2 Mixed hyperlipidemia; I10 Essential (primary) hypertension; Z79.899 Other long term (current) drug therapy
CPT/HCPCS: 36415; 82306; 83036; 84443

== ENCOUNTER 2020-12-08 01:06 | Day surgery (SDC) | payer MEDICARE, SELFPAY ==
[2020-12-01 14:22] VITALS: BMI 25.9
[2020-12-08] VITALS (7 sets, daily range): BP systolic 133–168; BP diastolic 44–91; PULSE 65–75; RESP 16–20; TEMP 37.6; O2SAT 96–100
--- NOTE | 2020-12-08 07:13 | WPDHPUPDATE1 ---
History and Physical Update Update Date/Time: 12/08/20 07:13 History and Physical has been reviewed, including an updated exam of the patient. There are NO changes in the patient's condition. Risks, benefits, and alternatives have been discussed and questions answered. Patient agrees to proceed with procedure.
[2020-12-08] MEDS: LIDO 1%/EPINEPHRINE 1:100,000 20 ML VIAL 6 ML INFILTRATE (14:25)
[2020-12-08] MEDS: BACITRACIN OINTMENT 15 GM TUBE 1 APPLIC TOPICAL (14:26)
--- NOTE | 2020-12-08 14:29 | PM.OP ---
Procedure Note - Brief Procedure Note - Brief Date of procedure: 12/08/20 Pre-op diagnosis: right carpal tunnel syndrome Post-op diagnosis: same Procedure performed: right open carpal tunnel release Description of procedure: the patient's right palm was marked in the holding area. he was taken to the operating room and placed supine on the operating table. The time-out was held and confirmed. The extremity was prepped and draped in usual fashion. The site was marked for the incision and this area was infiltrated with 1% lidocaine with epinephrine. Adequate anesthesia was obtained. the tourniquet was inflated to 250 mmHg. the incision was made in the palm as marked. Dissection was carried bluntly through the subcutaneous tissue to the palmar fascia. this and the carpal ligament were incised with a 15. Blade. under 3 point retraction the ligament was divided distally and proximally to completely release it. No unusual anatomy was noted. The skin wound was closed with interrupted 4-0 nylon suture. The usual bandage was applied the tourniquet was released. He is discharged from the operating room in stable condition. Anesthesia: local Surgeon: Lorenzo Bowman MD Estimated blood loss (mL): 1 Tourniquet time (min): 6 Drains: No Packing: No Pathology: none sent Complications: No immediate complications Condition: stable Disposition: same day
== END 2020-12-08 15:00 | disposition home or self-care (01) ==
PROVIDERS: PCP Internal Medicine; Visit Provider Plastic Surgery
PROC: (CPT 64721; principal; 2020-12-08 14:15)
DX: G56.01 Carpal tunnel syndrome, right upper limb (principal)
CPT/HCPCS: 64721; A9270

== ENCOUNTER 2021-01-06 09:13 | Outpatient (CLI) | payer MEDICARE, SELFPAY ==
[2021-01-06 09:42] LABS: Basophils Percent Auto 0.3 % (0.2-1.2); Eosinophils Percent Auto 0.3 % (0-4.4); Hematocrit 34.4 % (42.0-52.0); Immature Granulocyte Absolute 0.01 K/mm3 (0.00-0.031); Immature Granulocyte Percent A 0.3 % (0-0.5); Lymphocytes Absolute Auto 0.47 K/mm3 (0.9-3.2); Lymphocytes Percent Auto 15.1 % (18.3-44.2); Mean Corpuscular Hemoglobin 29.6 pg (26-34); Mean Corpuscular Volume 92.5 fl (80-100); Mean Platelet Volume 10.4 fl (7.4-10.4); Monocytes Absolute Auto 0.2 K/mm3 (0.1-0.6); Monocytes Percent Auto 7.1 % (2.6-8.5); Neutrophils Absolute Auto 2.4 K/mm3 (1.3-6.7); Neutrophils Percent Auto 76.9 % (45.5-73.1); Platelet Count Result 130 k/mm3 (150-375); Red Blood Count 3.72 M/mm3 (4.6-6.20); Red Cell Distribution Width 16.3 % (11.5-14.5); White Blood Count 3.1 K/mm3 (4.5-10.0)
[2021-01-06 12:27] LABS: Anion Gap 9 mmol/L (8-16); Blood Urea Nitrogen 22 mg/dL (9-20); Calcium 9.5 mg/dL (8.4-10.2); Carbon Dioxide 24 mmol/L (22-30); Chloride 105 mmol/L (98-107); Estimated Glomerular Filt Rate > 60; Glucose 116 mg/dL (65-110); Potassium 4.3 mmol/L (3.4-5.0); Sodium 138 mmol/L (137-145)
[2021-01-06 12:38] LABS: Iron 29 ug/dL (49-181)
[2021-01-06 12:53] LABS: Percent Iron Saturation 10 % (20-50)
== END 2021-01-06 09:14 | disposition home or self-care (01) ==
LOC: ANHLAB 09:15
PROVIDERS: PCP Internal Medicine; Visit Provider Internal Medicine Hematology & Oncology
DX: D61.818 Other pancytopenia (principal); D50.9 Iron deficiency anemia, unspecified
CPT/HCPCS: 36415; 80048; 82728; 83540; 83550; 85025

== ENCOUNTER 2021-04-05 07:08 | Outpatient (CLI) | payer MEDICARE, SELFPAY ==
[2021-04-05 07:50] LABS: Basophils Percent Auto 0.8 % (0.2-1.2); Eosinophils Absolute Auto 0.2 K/mm3 (0-0.3); Eosinophils Percent Auto 4.7 % (0-4.4); Hematocrit 37.1 % (42.0-52.0); Hemoglobin 12.2 g/dL (14.0-18.0); Immature Granulocyte Absolute 0.01 K/mm3 (0.00-0.031); Immature Granulocyte Percent A 0.3 % (0-0.5); Lymphocytes Absolute Auto 0.69 K/mm3 (0.9-3.2); Lymphocytes Percent Auto 19.2 % (18.3-44.2); Mean Corpuscular HGB Conc 32.9 g/dl (32-36); Mean Corpuscular Hemoglobin 31.2 pg (26-34); Mean Corpuscular Volume 94.9 fl (80-100); Mean Platelet Volume 9.9 fl (7.4-10.4); Monocytes Absolute Auto 0.3 K/mm3 (0.1-0.6); Monocytes Percent Auto 6.9 % (2.6-8.5); Neutrophils Absolute Auto 2.5 K/mm3 (1.3-6.7); Neutrophils Percent Auto 68.1 % (45.5-73.1); Platelet Count Result 153 k/mm3 (150-375); Red Blood Count 3.91 M/mm3 (4.6-6.20); Red Cell Distribution Width 15.4 % (11.5-14.5); White Blood Count 3.6 K/mm3 (4.5-10.0)
[2021-04-05 08:05] LABS: Alanine Aminotransferase 31 U/L (4-50); Albumin Level 4.5 g/dL (3.5-5.1); Alkaline Phosphatase 64 U/L (38-126); Anion Gap 7 mmol/L (8-16); Aspartate Amino Transferase 42 U/L (17-59); Bilirubin,Total 0.8 mg/dL (0.2-1.3); Blood Urea Nitrogen 37 mg/dL (9-20); Calcium 9.8 mg/dL (8.4-10.2); Carbon Dioxide 27 mmol/L (22-30); Chloride 109 mmol/L (98-107); Cholesterol 154 mg/dL (0-200); Estimated Glomerular Filt Rate 58; Glucose 109 mg/dL (65-110); HDL Direct 71 mg/dL; Potassium 4.4 mmol/L (3.4-5.0); Sodium 143 mmol/L (137-145); Triglycerides 85 mg/dL (<150)
[2021-04-05 08:16] LABS: LDL Cholesterol Direct 63 mg/dL
[2021-04-05 08:17] LABS: Hemoglobin A1C 5.2 % (<5.7)
[2021-04-05 08:44] LABS: Vitamin D 25 Hydroxy 71.3 ng/mL
== END 2021-04-05 07:09 | disposition home or self-care (01) ==
PROVIDERS: PCP Internal Medicine; Visit Provider Internal Medicine
DX: E78.2 Mixed hyperlipidemia (principal); E55.9 Vitamin D deficiency, unspecified; I10 Essential (primary) hypertension; Z51.81 Encounter for therapeutic drug level monitoring; Z79.899 Other long term (current) drug therapy
CPT/HCPCS: 36415; 80053; 80061; 82306; 83036; 84439; 84443; 85025

== ENCOUNTER 2021-07-12 09:47 | Outpatient (CLI) | payer MEDICARE, SELFPAY ==
[2021-07-12 10:06] LABS: Basophils Percent Auto 0.9 % (0.2-1.2); Eosinophils Absolute Auto 0.1 K/mm3 (0-0.3); Eosinophils Percent Auto 3.5 % (0-4.4); Hematocrit 37.6 % (42.0-52.0); Hemoglobin 11.7 g/dL (14.0-18.0); Immature Granulocyte Absolute 0.02 K/mm3 (0.00-0.031); Immature Granulocyte Percent A 0.6 % (0-0.5); Lymphocytes Absolute Auto 0.64 K/mm3 (0.9-3.2); Lymphocytes Percent Auto 18.5 % (18.3-44.2); Mean Corpuscular HGB Conc 31.1 g/dl (32-36); Mean Corpuscular Volume 99.7 fl (80-100); Mean Platelet Volume 9.8 fl (7.4-10.4); Monocytes Absolute Auto 0.2 K/mm3 (0.1-0.6); Monocytes Percent Auto 6.9 % (2.6-8.5); Neutrophils Absolute Auto 2.4 K/mm3 (1.3-6.7); Neutrophils Percent Auto 69.6 % (45.5-73.1); Platelet Count Result 171 k/mm3 (150-375); Red Blood Count 3.77 M/mm3 (4.6-6.20); Red Cell Distribution Width 15.3 % (11.5-14.5); White Blood Count 3.5 K/mm3 (4.5-10.0)
[2021-07-12 11:44] LABS: Anion Gap 6 mmol/L (8-16); Blood Urea Nitrogen 28 mg/dL (9-20); Carbon Dioxide 25 mmol/L (22-30); Chloride 110 mmol/L (98-107); Estimated Glomerular Filt Rate 52; Glucose 104 mg/dL (65-110); Potassium 4.4 mmol/L (3.4-5.0); Sodium 141 mmol/L (137-145)
[2021-07-12 13:03] LABS: Iron 104 ug/dL (49-181)
[2021-07-12 13:19] LABS: Percent Iron Saturation 32 % (20-50)
== END 2021-07-12 09:48 | disposition home or self-care (01) ==
PROVIDERS: PCP Internal Medicine; Visit Provider Internal Medicine Hematology & Oncology
DX: D61.818 Other pancytopenia (principal); D50.9 Iron deficiency anemia, unspecified
CPT/HCPCS: 36415; 80048; 82728; 83540; 83550; 85025

== ENCOUNTER 2021-08-11 10:55 | Outpatient (CLI) | payer MEDICARE, SELFPAY ==
[2021-08-11 11:19] LABS: Basophils Percent Auto 0.7 % (0.2-1.2); Eosinophils Absolute Auto 0.1 K/mm3 (0-0.3); Eosinophils Percent Auto 4.3 % (0-4.4); Hematocrit 35.2 % (42.0-52.0); Hemoglobin 11.3 g/dL (14.0-18.0); Lymphocytes Absolute Auto 0.57 K/mm3 (0.9-3.2); Lymphocytes Percent Auto 20.2 % (18.3-44.2); Mean Corpuscular HGB Conc 32.1 g/dl (32-36); Mean Corpuscular Hemoglobin 31.1 pg (26-34); Mean Platelet Volume 10.4 fl (7.4-10.4); Monocytes Absolute Auto 0.2 K/mm3 (0.1-0.6); Monocytes Percent Auto 8.5 % (2.6-8.5); Neutrophils Absolute Auto 1.9 K/mm3 (1.3-6.7); Neutrophils Percent Auto 66.3 % (45.5-73.1); Platelet Count Result 128 k/mm3 (150-375); Red Blood Count 3.63 M/mm3 (4.6-6.20); Red Cell Distribution Width 15.2 % (11.5-14.5); White Blood Count 2.8 K/mm3 (4.5-10.0)
[2021-08-11 11:33] LABS: Alanine Aminotransferase 18 U/L (4-50); Albumin Level 4.2 g/dL (3.5-5.1); Alkaline Phosphatase 61 U/L (38-126); Anion Gap 6 mmol/L (8-16); Aspartate Amino Transferase 41 U/L (17-59); Bilirubin,Total 0.9 mg/dL (0.2-1.3); Blood Urea Nitrogen 28 mg/dL (9-20); Calcium 8.7 mg/dL (8.4-10.2); Carbon Dioxide 24 mmol/L (22-30); Chloride 111 mmol/L (98-107); Cholesterol 144 mg/dL (0-200); Estimated Glomerular Filt Rate 52; Glucose 111 mg/dL (65-110); HDL Direct 62 mg/dL; Potassium 4.4 mmol/L (3.4-5.0); Sodium 141 mmol/L (137-145); Triglycerides 59 mg/dL (<150)
[2021-08-11 11:35] LABS: Hemoglobin A1C 5.2 % (<5.7)
[2021-08-11 11:44] LABS: LDL Cholesterol Direct 57 mg/dL
[2021-08-11 12:17] LABS: Free T4 Free Thyroxine 1.56 ng/mL (0.78-2.19)
== END 2021-08-11 10:56 | disposition home or self-care (01) ==
LOC: ANHLAB 10:59
PROVIDERS: PCP Internal Medicine; Visit Provider Internal Medicine
DX: E78.2 Mixed hyperlipidemia (principal); Z51.81 Encounter for therapeutic drug level monitoring; Z79.899 Other long term (current) drug therapy; Z13.1 Encounter for screening for diabetes mellitus; Z13.71 Encounter for nonprocreative screening for genetic disease carrier status; I10 Essential (primary) hypertension
CPT/HCPCS: 36415; 80053; 80061; 83036; 84439; 84443; 85025

== ENCOUNTER 2021-11-16 11:29 | Outpatient (CLI) | payer MEDICARE, SELFPAY ==
--- NOTE | ~2021-11-16 | XR_ITS ---
XR chest 2V 11/16/2021 11:57 Indication: Cough Procedure: PA and lateral views of the chest Comparison: 01/07/2020 Findings: Status post median sternotomy for CABG. Borderline heart size. Chronic linear bibasilar inf iltrates may represent atelectasis or scarring. No acute focal pneumonia, edema or effusion. No acute osseous abnormality. The lungs are hyperinflated which is consistent with, but not diagnostic of chr onic obstructive pulmonary disease. There is atherosclerosis and ectasia of the aorta. Impression: 1: Chronic linear bibasilar atelectasis/scarring. Reviewed, dictated and finalized at location A. Impression: 1: Chronic linear bibasilar atelectasis/scarring.
== END 2021-11-16 11:30 | disposition home or self-care (01) ==
PROVIDERS: PCP Internal Medicine; Visit Provider Internal Medicine
DX: R05.9 Cough, unspecified (principal); R91.8 Other nonspecific abnormal finding of lung field
CPT/HCPCS: 71046

== ENCOUNTER 2021-11-29 09:07 | Outpatient (CLI) | payer MEDICARE, SELFPAY ==
--- NOTE | ~2021-11-29 | CT_ITS ---
EXAMINATION: CT diagnostic chest w con DATE: 11/29/2021 10:01 INDICATION: Cough, shortness of breath and dyspnea with exertion TECHNIQUE: Computed tomography (CT) of the chest was performed without intravenous contrast. The dose -length product was 310.14 mGy-cm. Automated exposure control and iterative reconstruction technique were employed. COMPARISON: Chest x-ray dated 11/16/2021 FINDINGS: There is an ascending thoracic aortic aneurysm measuring 5 cm at the level of the right pul monary artery. There is atherosclerosis. Status post median sternotomy for CABG. Moderate cardiomegal y. No evidence for aortic dissection. Small left pleural effusion. No thoracic lymphadenopathy. There is tracheobronchial calcification. There is dependent atelectasis. There is right middle lobe and li ngular atelectasis/scarring. There is debris in the mainstem bronchus, likely mucus. No suspicious pu lmonary nodules or masses. Mild thoracic spondylosis with accentuated kyphosis. IMPRESSION: 1. Ascending thoracic aortic aneurysm measuring 5 cm at the level of the right pulmonary artery. 2: Moderate cardiomegaly. Status post median sternotomy for CABG. 3: Small left pleural effusion. Reviewed, dictated and finalized at location A.
[2021-11-29 09:50] LABS: Estimated Glomerular Filt Rate 44
== END 2021-11-29 09:08 | disposition home or self-care (01) ==
PROVIDERS: PCP Internal Medicine; Visit Provider Internal Medicine
DX: R05.3 Chronic cough (principal); I71.2 Thoracic aortic aneurysm, without rupture; R06.02 Shortness of breath; R06.00 Dyspnea, unspecified; I51.7 Cardiomegaly; J90 Pleural effusion, not elsewhere classified
CPT/HCPCS: 71260; Q9967

== ENCOUNTER 2021-12-14 06:56 | Outpatient (CLI) | payer MEDICARE, SELFPAY ==
[2021-12-14 07:25] LABS: Basophils Percent Auto 0.8 % (0.2-1.2); Eosinophils Absolute Auto 0.1 K/mm3 (0-0.3); Hematocrit 41.7 % (42.0-52.0); Hemoglobin 13.3 g/dL (14.0-18.0); Immature Granulocyte Absolute 0.01 K/mm3 (0.00-0.031); Immature Granulocyte Percent A 0.3 % (0-0.5); Lymphocytes Absolute Auto 0.74 K/mm3 (0.9-3.2); Lymphocytes Percent Auto 20.1 % (18.3-44.2); Mean Corpuscular HGB Conc 31.9 g/dl (32-36); Mean Corpuscular Hemoglobin 30.9 pg (26-34); Mean Corpuscular Volume 96.8 fl (80-100); Mean Platelet Volume 10.7 fl (7.4-10.4); Monocytes Absolute Auto 0.3 K/mm3 (0.1-0.6); Monocytes Percent Auto 8.4 % (2.6-8.5); Neutrophils Absolute Auto 2.5 K/mm3 (1.3-6.7); Neutrophils Percent Auto 67.4 % (45.5-73.1); Platelet Count Result 150 k/mm3 (150-375); Red Blood Count 4.31 M/mm3 (4.6-6.20); Red Cell Distribution Width 14.7 % (11.5-14.5); White Blood Count 3.7 K/mm3 (4.5-10.0)
[2021-12-14 07:36] LABS: Cholesterol 161 mg/dL (0-200); HDL Direct 54 mg/dL; Triglycerides 95 mg/dL (<150)
[2021-12-14 07:48] LABS: LDL Cholesterol Direct 73 mg/dL
[2021-12-14 07:52] LABS: Hemoglobin A1C 5.4 % (<5.7)
[2021-12-14 08:08] LABS: Free T4 Free Thyroxine 1.65 ng/mL (0.78-2.19)
== END 2021-12-14 06:57 | disposition home or self-care (01) ==
LOC: ANHLAB 06:59
PROVIDERS: PCP Internal Medicine; Visit Provider Internal Medicine
DX: E78.2 Mixed hyperlipidemia (principal); Z13.1 Encounter for screening for diabetes mellitus; E55.9 Vitamin D deficiency, unspecified; I10 Essential (primary) hypertension; Z79.899 Other long term (current) drug therapy; Z13.29 Encounter for screening for other suspected endocrine disorder
CPT/HCPCS: 36415; 80061; 82306; 83036; 84439; 84443; 85025

== ENCOUNTER 2022-07-18 08:48 | Emergency (ER) | payer OTHER, MEDICARE, SELFPAY ==
--- NOTE | ~2022-07-18 | XR_ITS ---
Right Shoulder Technique: AP and scapular Y views were obtained. Clinical History: Pain Findings: No fracture or dislocation is seen. Osseous alignment is anatomic. The glenohumeral and acr omioclavicular joint spaces are preserved. Soft tissues are unremarkable. Impression: Unremarkable right shoulder radiographs. Reviewed, dictated and finalized at [facility]. Impression: Unremarkable right shoulder radiographs.
[2022-07-18 08:47] VITALS: BP 138/97; PULSE 84; RESP 12; TEMP 36.4; O2SAT 98
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
[2022-07-18 09:28] VITALS: BP 159/67; PULSE 73; RESP 15; O2SAT 100
== END 2022-07-18 09:40 | disposition home or self-care (01) ==
PROVIDERS: Emergency Provider Physician Assistant; PCP Nurse Practitioner
DX: M25.511 Pain in right shoulder (principal); I48.91 Unspecified atrial fibrillation; I10 Essential (primary) hypertension; I12.9 Hypertensive chronic kidney disease with stage 1 through stage 4 chronic kidney disease, or unspecified chronic kidney disease; N18.9 Chronic kidney disease, unspecified; I25.10 Atherosclerotic heart disease of native coronary artery without angina pectoris; E78.5 Hyperlipidemia, unspecified; Z85.46 Personal history of malignant neoplasm of prostate; Z87.891 Personal history of nicotine dependence; V89.2XXA Person injured in unspecified motor-vehicle accident, traffic, initial encounter
CPT/HCPCS: 73030; 99283

== ENCOUNTER 2022-11-01 12:56 | Inpatient (IN) | payer MEDICARE, MEDICAID, SELFPAY ==
[2022-11-01] VITALS (27 sets, daily range): BP systolic 92–137; BP diastolic 48–93; PULSE 79–102; RESP 19–57; TEMP 36.4–36.9; O2SAT 91–100; BMI 18.8
--- NOTE | ~2022-11-01 | XR_ITS ---
Portable chest x-ray Comparison: 11/16/2021 Clinical History: Dyspnea Findings: Small bilateral pleural effusions are present. Probable minimal bibasilar pulmonary edema. Cardiomediastinal silhouette is stable. Bones and soft tissues are unremarkable. Impression: Small bilateral pleural effusions with minimal bibasilar pulmonary edema. Reviewed, dictated and finalized at [facility]. Impression: Small bilateral pleural effusions with minimal bibasilar pulmonary edema.
--- NOTE | 2022-11-01 13:05 | ECG_ITS ---
Measurements Intervals [place] Rate: 95 P: RI: 0 QRS: -40 QRSD: 142 T: -17 QT: 400 QTc: 503 Interpretive Statements ATRIAL FIBRILLATION WITH ABERRANT CONDUCTION OR VENTRICULAR PREMATURE COMPLEXES LEFT AXIS DEVIATION [QRS AXIS < -30] RIGHT BUNDLE BRANCH BLOCK [120+ ms QRS DURATION, UPRIGHT V1, 40+ ms S IN I/aVL/V4/V5/V6] COMPARED TO ECG 01/07/2020 15:47:20 NO SIGNIFICANT CHANGE Electronically Signed On 11-02-2022 16:58:58 CDT by Antony Gregory M.D.
--- NOTE | 2022-11-01 13:15 | ED.AMS ---
HPI - Altered Mental Status General Chief Complaint: Altered Mental Status Stated Complaint: AMS/ LOW o2 Time Seen by Provider: 11/01/22 13:15 History of Present Illness HPI narrative: Patient is an 87-year-old male presenting with altered mental status. Patient resides at a nursing facility. He was noted to be slumped over and minimally responsive. He was hypoxic and placed on nasal cannula with increasing his saturations. His mental status also improved. For EMS, he was alert and tachypneic. He was saturating adequately on 6 L nasal cannula. On my evaluation, the patient denies complaints. States he is not sure why he is here. Son is at bedside. Patient has a POLST form that states he desires comfort focused care. Discussed with the patient that I feel he would benefit from BiPAP given his increased work of breathing. States he is agreeable with this at this time. States he does not want chest compressions or intubation. Related Data Home Medications Medication Instructions Recorded Confirmed multivitamin 1 tablet PO HS 10/01/19 11/01/22 atorvastatin 80 mg tablet 80 mg PO HS 11/01/22 11/01/22 calcium carbonate 200 mg calcium 200 mg PO BID 11/01/22 11/01/22 (500 mg) chewable tablet (Tums) dextromethorphan-guaifenesin 10 10 ml PO Q4-6H PRN Cough 11/01/22 11/01/22 mg-100 mg/5 mL oral syrup donepezil 5 mg tablet 5 mg PO HS 11/01/22 11/01/22 loratadine 10 mg tablet 10 mg PO QAM 11/01/22 11/01/22 omeprazole 20 mg capsule,delayed 20 mg PO DAILY 11/01/22 11/01/22 release tamsulosin 0.4 mg capsule 0.4 mg PO HS 11/01/22 11/01/22 trazodone 100 mg tablet 100 mg PO HS 11/01/22 11/01/22 warfarin 5 mg tablet 5 mg PO DAILY 11/01/22 11/01/22 Allergies Allergy/AdvReac Type Severity Reaction Status Date / Time No Known Allergies Allergy Verified 11/01/22 13:21 Review of Systems Review of Systems: All systems reviewed & are unremarkable except as noted in HPI and below PMFSH Past Medical History Medical History (Updated 11/02/22 @ 18:03 by Madison Shirley MD) Actinic keratosis Atrial fibrillation Benign essential hypertension BMI 25.0-25.9,adult Carpal tunnel syndrome, bilateral Chronic anemia Chronic kidney disease Chronic left SI joint pain Coronary artery disease Status post bypass in March 1992 and stent x2 in 2018. Cough Current use of usp anticoagulation On warfarin status post mechanical aortic valve replacement. Degenerative joint disease Diplopia Eczema Encounter for routine adult health examination without abnormal findings Essential hypertension Follow up Gastroesophageal reflux disease Hand paresthesia Hearing loss History of prostate cancer History of tobacco abuse Hyperlipidemia Hypersomnolence Iron deficiency anemia Mild reactive airways disease Nocturnal leg cramps CHIRAG on CPAP Pancytopenia Prostate cancer Sacroiliitis Skin lesion of neck Thoracic ascending aortic aneurysm Valvular heart disease Status post mechanical aortic valve replacement. Surgical History Surgical History (Updated 11/01/22 @ 21:57 by Rossy Grijalva NP) H/O repair of left rotator cuff 2007 History of cholecystectomy (~1992) History of coronary artery bypass graft (~03/07/92) History of coronary artery stent placement (~2017) History of inguinal hernia repair (~1992) History of mechanical aortic valve replacement (~03/07/92) History of repair of left rotator cuff (~1997) History of tonsillectomy and adenoidectomy Hx of cholecystectomy 1992 Hx of heart artery stent (2) 2018 Hx of hernia repair 1992 - inguinal. S/P right rotator cuff repair Family History Family History Mother ASHD (arteriosclerotic heart disease) Alzheimers disease Hypertension Father Bladder cancer Emphysema, unspecified Sibling Hypertension Social History Social History Social History: Jana
[2022-11-01 13:24] LABS: Eosinophils Percent Auto 0.2 % (0-4.4); Hematocrit 33.3 % (42.0-52.0); Immature Granulocyte Absolute 0.03 K/mm3 (0.00-0.031); Immature Granulocyte Percent A 0.6 % (0-0.5); Lymphocytes Absolute Auto 0.21 K/mm3 (0.9-3.2); Mean Corpuscular Hemoglobin 30.6 pg (26-34); Mean Corpuscular Volume 101.8 fl (80-100); Mean Platelet Volume 10.5 fl (7.4-10.4); Monocytes Absolute Auto 0.4 K/mm3 (0.1-0.6); Monocytes Percent Auto 7.9 % (2.6-8.5); Neutrophils Absolute Auto 4.6 K/mm3 (1.3-6.7); Neutrophils Percent Auto 87.3 % (45.5-73.1); Platelet Count Result 207 k/mm3 (150-375); Red Blood Count 3.27 M/mm3 (4.6-6.20); Red Cell Distribution Width 16.3 % (11.5-14.5); White Blood Count 5.3 K/mm3 (4.5-10.0)
[2022-11-01 13:27] LABS: Alveolar/Arterial O2 Gradient 71.5 mmHg; Base Excess ABG -5.4 mEq/l (+/-2.0); Carboxyhemoglobin 0.7 % THb (0-2.0); Fractional Inspired Oxygen 36 %; HCO3 ABG 23.6 mEq/l (22.0-26.0); Methemoglobin ABG 0.2 %THb (0-1.5); Oxygen Content ABG 14.4 %vol (16.0-22.0); Oxygen Saturation ABG 96.7 % (95.0-100.0); Oxyhemoglobin 95.2 % THb (90.0-100.0); PO2 ABG 110.1 mmHg (80.0-100.0); PO2 FiO2 Ratio Arterial Blood 3.06 %; Reduced Hemoglobin 3.9 %THb (0-5.0); Total Hemoglobin 10.6 g/dL (12.0-18.0)
[2022-11-01 13:30] LABS: Device NASAL CANNULA; Modified Allen's Test Pass; PCO2 ABG 64.7 mmHg (35.0-45.0); Site Drawn RIGHT RADIAL; pH ABG 7.179 (7.350-7.450)
[2022-11-01] MEDS: PIPERACILLN/TAZ 3.375GM/NS50ML 3.375 GM/50 ML BAG IVPB (13:30)
[2022-11-01] MEDS: SODIUM CHLORIDE 0.9% IV 1,000 ML 999 ML IV CONT (13:30)
[2022-11-01 13:35] LABS: Prothrombin Time 53.6 Seconds (11.1-14.7)
[2022-11-01 13:36] LABS: Alanine Aminotransferase 30 U/L (6-50); Albumin Level 3.7 g/dL (3.5-5.1); Alkaline Phosphatase 53 U/L (38-126); Anion Gap 6 mmol/L (8-16); Aspartate Amino Transferase 40 U/L (17-59); Bilirubin,Total 1.1 mg/dL (0.2-1.3); Blood Urea Nitrogen 29 mg/dL (9-20); Calcium 8.3 mg/dL (8.4-10.2); Carbon Dioxide 25 mmol/L (22-30); Chloride 107 mmol/L (98-107); Estimated CRCL calculation 34 ml/min; Estimated Glomerular Filt Rate 52; Glucose 191 mg/dL (65-110); Lactic Acid Reflex 2.1 mmol/L (0.7-2.0); Partial Thromboplastin Time 42.6 SECONDS (22.3-36.8); Potassium 4.3 mmol/L (3.4-5.0); Sodium 138 mmol/L (137-145)
[2022-11-01] MEDS: IPRATROPIUM BR 0.02% INH SOLN 0.5 MG/2.5 ML VIAL INHALATION (13:37)
[2022-11-01] MEDS: ALBUTEROL SULFATE NEB 2.5 MG/3 ML INH 5 MG INHALATION (13:37)
[2022-11-01 13:41] LABS: Platelet Estimate Adequate (Adequate)
[2022-11-01 13:42] LABS: Poikilocytosis 1+ (NORMAL); Schistocytes None Seen (NORMAL)
[2022-11-01 13:50] LABS: NT Pro B Type Natriuretic Pept 25900 pg/mL (19.9-100); Troponin I 0.487 ng/mL (0.000-0.034)
[2022-11-01 13:58] LABS: INR 5.3
[2022-11-01] MEDS: FUROSEMIDE INJ 40 MG/4 ML VIAL IV PUSH (14:10)
[2022-11-01 14:58] LABS: Influenza A QL RT-PCR Negative (Negative); Influenza B QL RT-PCR Negative (Negative); SARS-CoV-2 RNA PCR Negative (Negative)
[2022-11-01 16:22] LABS: Reflex Lactic Acid Yes or No Add Lactic
[2022-11-01 16:51] LABS: Lactic Acid 1.1 mmol/L (0.7-2.0)
--- NOTE | 2022-11-01 17:32 | ADMGEN ---
This patient, Akira Samson, was admitted to IMU Room 213-01 at 1700. Patient/family oriented to hospital policies and general routines including ID bracelet, bed and alarms, visiting hours, pain management, procedures, bathroom and other care routines, personal items, smoking policy, room service/diet, and visiting hours. Information on how to activate the Rapid Response Team has been discussed. Patient/Family are encouraged to report perceived risks to care and to ask questions if they do not understand what they are told or what they should do.
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
[2022-11-01] MEDS: PIPERACILLIN/TAZ 2.25G/NS 50ML 2.25 GM/50 ML BAG IVPB (22:25)
[2022-11-01] MEDS: SCOPOLAMINE 1.5 MG PATCH TRANSDERM (22:26)
--- NOTE | 2022-11-01 22:29 | PCRCNOTE ---
Spoke with RN and he is aware of High RR of 56 while on BIPAP.
--- NOTE | 2022-11-01 22:50 | PC.NURSE ---
Kurt (patient son) notified about patient's increased work of breathing and oxygen demands. Family to come in and see patient. Rossy Grijalva BRAND ENGINEER also notified, no further orders as of now.
--- NOTE | 2022-11-01 23:38 | PC.NURSE ---
Kurt (patient son) and family requesting for comfort care measures. Rossy Grijalva PRINCIPAL TECHNICAL ARCHITECT made aware as well as charge nurse.
[2022-11-01 23:58] LABS: Troponin I 0.509 ng/mL (0.000-0.034)
[2022-11-02] VITALS: PULSE 104
[2022-11-02] MEDS: MORPHINE SULFATE (*CRX) 2 MG/ML INJ IV PUSH (00:12)
[2022-11-02] MEDS: LORazepam INJ (*CRX) 2 MG/ML VIAL IV PUSH (00:12)
--- NOTE | 2022-11-02 00:56 | PC.NURSE ---
Patient passing at 0054. Luis Doherty electrical discharge machine operator nurse to confirm passing. Dr. Castillo notified. supervisor small appliance assembly notified. Family at bedside.
--- NOTE | 2022-11-27 20:19 | PM.DDS ---
Discharge Summary Date and Time Date of : 11/02/22 Time of : 00:54 Provider Pronounced By: jeronimo morris Probable Cause of Probable Cause of : CHF Summary Hospital Course: This is an 87-year-old male with past medical history significant for congestive heart failure, COPD, atrial fibrillation, coronary artery disease, prostate cancer, obstructive sleep apnea on CPAP, restless leg syndrome, custodial resident. Patient is do not resuscitate. Was brought to the emergency room due to altered mental status was found slumped over at custodial. was found to have acute except for survey fernandez of congestive heart failure hypercarbic respiratory failure with a pCO2 in the 60s. patient initially placed on BiPAP he was found to have a brain natriuretic peptide upwards 25,000. patient's condition further deteriorated and with advanced directives of do not resuscitate decision was made to make the patient comfort care. Additional Data Confirmation of as documented by pronouncing clinician: Pupillary Reflex, Palpable Pulses, Response to Stimuli, Heart Tones and Breath Sounds Name of Provider Notified: monica Time Provider Notified: 00:58 Family Requests Autopsy: No Pilot Plant Research Technician Notified: Yes Date [facility] Notified of : 11/02/22 Time [facility] Notified of : 01:02
== END 2022-11-02 01:00 | disposition expired | DRG 193 ==
LOC: ANHED 13:28 → ANHIMU 16:48
PROVIDERS: Nurse Practitioner; Admitting Provider Chiropractor; Emergency Provider Emergency Medicine; PCP Hospitalist; Visit Provider Internal Medicine
DX: J18.9 Pneumonia, unspecified organism (principal); J96.01 Acute respiratory failure with hypoxia; J96.02 Acute respiratory failure with hypercapnia; I13.0 Hypertensive heart and chronic kidney disease with heart failure and stage 1 through stage 4 chronic kidney disease, or unspecified chronic kidney disease; N18.9 Chronic kidney disease, unspecified; I50.9 Heart failure, unspecified; R77.8 Other specified abnormalities of plasma proteins; E78.2 Mixed hyperlipidemia; I48.91 Unspecified atrial fibrillation; Z66 Do not resuscitate; D50.9 Iron deficiency anemia, unspecified; K21.9 Gastro-esophageal reflux disease without esophagitis; G47.33 Obstructive sleep apnea (adult) (pediatric); L30.9 Dermatitis, unspecified; I25.10 Atherosclerotic heart disease of native coronary artery without angina pectoris; Z79.01 Long term (current) use of anticoagulants; Z95.2 Presence of prosthetic heart valve; Z87.891 Personal history of nicotine dependence; Z90.49 Acquired absence of other specified parts of digestive tract; Z95.1 Presence of aortocoronary bypass graft; Z95.5 Presence of coronary angioplasty implant and graft; Z85.46 Personal history of malignant neoplasm of prostate; Z20.822 Contact with and (suspected) exposure to COVID-19
CPT/HCPCS: 36415; 36600; 71045; 80053; 82375; 82805; 83050; 83605; 83880; 84484; 85025; 85610; 85730; 87040; 87636; 93005; 94003; 94640; 96365; 96375; 99285; A9270; J1940; J2060; J2270; J2543; J7030